=== PATIENT | female | born 1980 | race Caucasian/White ===

== ENCOUNTER 2025-04-12 11:27 | Day surgery (SDC) | payer BC ==
[~2025-04-12] VITALS: Ht 162.6 cm; Wt 95.4 kg
[~2025-04-12 11:27] MED LIST: ACEASPCAF; DESOGEN; IBUP200; IBUP800 PO; OXYACE5T PO
[2025-04-12] MEDS ORDERED: PROG100 (11:55)
[2025-04-12] MEDS ORDERED: OMEP20ER (11:55)
[2025-04-12] MEDS ORDERED: SPIR50 (11:56)
[2025-04-12] MEDS ORDERED: Adipex-P37.5 M1 (11:56)
[2025-04-12] MEDS ORDERED: COLLAGEN 15001 EACH (11:57)
[2025-04-12 14:04] VITALS: BP 118/72
--- NOTE | 2025-04-12 14:10 | NUR ---
04/12/25 1410 Shadia Casillas PATIENT WAS A LITTLE TEARFUL WHEN FIRST WAKING UP IN STEPDOWN. SHE STATES THAT SHE IS USUALLY EMOTIONAL WHEN FIRST WAKING UP FROM ANESTHESIA. DENIES ANY SPECIFIC COMPLAINTS AND STATES THAT SHE IS OKAY. SHE DENIED PAIN INITIALLY BUT PRIOR TO DISCHARGE SHE C/O STARTING TO FEEL A LITTLE SORENESS IN THE THROAT. PT ADVISED TO DRINK LOTS OF FLUIDS EITHER WARM OR COLD, WHICHEVER FEELS MORE SOOTHING. SHE VERBALIZED UNDERSTANDING.
== END 2025-04-12 13:52 | disposition home or self-care (01) ==
LOC: ORSCSDS 11:27
PROVIDERS: Surgery
PROC: 0DB98ZX Excision of Duodenum, Via Natural or Artificial Opening Endoscopic, Diagnostic (ICD-10-PCS; principal; 2025-04-12 13:00)
DX: K21.9 Gastro-esophageal reflux disease without esophagitis (principal); R13.10 Dysphagia, unspecified; K29.80 Duodenitis without bleeding; E66.812 Obesity, class 2; Z68.36 Body mass index [BMI] 36.0-36.9, adult; Z79.899 Other long term (current) drug therapy
CPT/HCPCS: 88305; J2704; J7120